=== PATIENT | female | born 1950 | race Caucasian/White ===

== ENCOUNTER 2019-11-29 20:48 | Emergency (ER) | payer MEDICARE, BC ==
[~2019-11-29] VITALS: Ht 157.5 cm; Wt 72.0 kg
[~2019-11-29 20:48] MED LIST: ONDA4TAB6 PO
[2019-11-29 22:04] LABS: BASOPHILS # (AUTO) 0.1 X10'3 (0-0.2); BASOPHILS % (AUTO) 0.3 % (0-1); EOSINOPHILS % (AUTO) 0 % (0-6); HEMATOCRIT 38.6 % (35.0-45.0); HEMOGLOBIN 13.1 g/dl (12.0-16.0); LYMPHOCYTES % (AUTO) 6.1 % (21-51); MEAN CORPUSCULAR HEMOGLOBIN 29.6 PG (27.0-31.0); MEAN CORPUSCULAR VOLUME 87.2 FL (78-98); MEAN PLATELET VOLUME 8.2 FL (7.4-10.4); MONOCYTES # (AUTO) 0.5 X10'3 (0-0.9); MONOCYTES % (AUTO) 2.9 % (2-12); NEUTROPHILS # (AUTO) 15.4 X10'3 (1.8-7.7); NEUTROPHILS % (AUTO) 90.7 % (42-75); PLATELET COUNT 276 X10'3 (140-440); RED BLOOD COUNT 4.42 X10'6 (4.20-5.60); RED CELL DISTRIBUTION WIDTH 13.5 % (11.5-14.5)
[2019-11-29 22:10] LABS: ALANINE AMINOTRANSFERASE 32 U/L (12-78); ALBUMIN 4.3 G/DL (3.4-5.0); ALBUMIN/GLOBULIN RATIO 1.3 (1.1-1.5); ALKALINE PHOSPHATASE 89 IU/L (46-116); ANION GAP 9 (8-16); ASPARTATE AMINO TRANSFERASE 29 U/L (10-37); BILIRUBIN,TOTAL 0.3 MG/DL (0.1-1.0); BLOOD UREA NITROGEN 14 MG/DL (7-18); BUN/CREATININE RATIO 18.9 (6.6-38.0); CALCIUM 9.2 MG/DL (8.5-10.1); CHLORIDE 106 MMOL/L (99-107); CREATININE 0.74 MG/DL (0.40-0.90); GLUCOSE 173 MG/DL (70-104); POTASSIUM 3.8 MMOL/L (3.5-5.1); SODIUM 140 MMOL/L (135-145); TOTAL CARBON DIOXIDE 24.7 MMOL/L (24-32); TOTAL PROTEIN 7.5 G/DL (6.4-8.2); eGFR 77 ML/MIN
[2019-11-29 22:22] LABS: CLARITY,URINE CLEAR (Clear); COLOR,URINE STRAW (Yellow); GLUCOSE, URINE NEGATIVE (Neg); KETONES,URINE NEGATIVE (Neg); LEUKOCYTE ESTERASE ,URINE TRACE (Neg); NITRITES, URINE NEGATIVE (Neg); OCCULT BLOOD,URINE TRACE-INTACT (Neg); PROTEIN,URINE NEGATIVE (Neg); UROBILINOGEN,URINE 0.2 E.U/dL (0.2-1.0)
[2019-11-29 22:24] LABS: UA COLLECTION TYPE CLN CATCH MIDSTREAM
[2019-11-29 22:28] LABS: BACTERIA,URINE NONE SEEN /HPF (Neg); RBC,URINE 0-2 /HPF (0-2); SQUAMOUS EPITHELIAL CELL,UR FEW /LPF (FEW); WBC,URINE 0-4 /HPF (0-4)
[2019-11-29] MEDS ORDERED: CefTRIAXone 2gm/D5W 50ml 50 ML IV ONE (22:35)
[2019-11-29] MEDS: oseltamivir phos 75mg capsule PO ONE ×2 (22:35→22:45)
[2019-11-29] MEDS ORDERED: azithromycin/NS 500mg/250ml 250 ML IV ONE (22:35)
--- NOTE | 2019-11-29 22:37 | NUR ---
INFORMED PA THAT THE PT WAS TO THE CLINIC YESTERDAY AND WAS STARTED ON TAMIFLU. HE STATED TO DISREGARD SWAB AND THAT HE WILL TREAT HER IMPERICALLY.
[2019-11-29] MEDS ORDERED: AZIT250T2 PO (22:39)
[2019-11-29] MEDS ORDERED: GUAI120015 PO (22:39)
[2019-11-29] MEDS ORDERED: PRED20TA PO (22:39)
[2019-11-30 00:08] VITALS: BP 140/63
--- NOTE | 2019-11-30 00:23 | NUR ---
per pharmacist, pt can wait for tamiflu dose until tomorrow since she already took one dose today at 5pm. pt educated to start next dose tomorrow morning. held tamiflu for min
--- NOTE | 2019-11-30 05:49 | NUR ---
RETURNED TAMIFLU TO [employer], UNABLE TO SCAN BAR CODE.
== END 2019-11-30 00:22 | disposition home or self-care (01) ==
LOC: ER 20:48
DX: J20.9 Acute bronchitis, unspecified (principal); J11.1 Influenza due to unidentified influenza virus with other respiratory manifestations; F10.99 Alcohol use, unspecified with unspecified alcohol-induced disorder; Z87.442 Personal history of urinary calculi; Z90.710 Acquired absence of both cervix and uterus; Z88.0 Allergy status to penicillin; Z79.2 Long term (current) use of antibiotics; Z79.899 Other long term (current) drug therapy; Y90.9 Presence of alcohol in blood, level not specified
CPT/HCPCS: 36415; 71046; 80053; 81001; 85025; 87088; 96365; 96367; 99284; J0456; J0696

== ENCOUNTER 2020-11-21 09:09 | Day surgery (SDC) | payer MEDICARE, BC ==
[2020-11-20 12:44] LABS: BASOPHILS % (AUTO) 0.7 % (0-1); EOSINOPHILS # (AUTO) 0.1 X10'3 (0-0.9); EOSINOPHILS % (AUTO) 1.3 % (0-6); HEMOGLOBIN 13.1 g/dl (12.0-16.0); LYMPHOCYTES # (AUTO) 1.7 X10'3 (1.1-4.8); LYMPHOCYTES % (AUTO) 25.8 % (21-51); MEAN CORPUSCULAR HGB CONC 32.8 g/dL (33.0-36.5); MEAN CORPUSCULAR VOLUME 91.5 FL (78-98); MEAN PLATELET VOLUME 7.8 FL (7.4-10.4); MONOCYTES # (AUTO) 0.6 X10'3 (0-0.9); MONOCYTES % (AUTO) 9.2 % (2-12); NEUTROPHILS # (AUTO) 4.1 X10'3 (1.8-7.7); PLATELET COUNT 327 X10'3 (140-440); RED BLOOD COUNT 4.37 X10'6 (4.20-5.60); RED CELL DISTRIBUTION WIDTH 12.3 % (11.5-14.5); WHITE BLOOD COUNT 6.5 X10'3 (4.5-11.0)
[2020-11-20 12:49] LABS: ALBUMIN 4.3 G/DL (3.4-5.0); ANION GAP 12 (8-16); BLOOD UREA NITROGEN 16 MG/DL (7-18); BUN/CREATININE RATIO 25.4 (6.6-38.0); CALCIUM 9.2 MG/DL (8.5-10.1); CHLORIDE 106 MMOL/L (99-107); CREATININE 0.63 MG/DL (0.40-0.90); GLUCOSE 88 MG/DL (70-104); SODIUM 143 MMOL/L (135-145); TOTAL CARBON DIOXIDE 25.2 MMOL/L (24-32); eGFR > 90 ML/MIN
[2020-11-20 12:50] LABS: PARTIAL THROMBOPLASTIN TIME 26 SECONDS (22-32)
[2020-11-21] VITALS (11 sets, daily range): BP systolic 96–158; BP diastolic 56–91
[~2020-11-21] VITALS: Ht 160 cm; Wt 94.9 kg
[~2020-11-21 09:09] MED LIST changes: +GUAI120015 PO
[2020-11-21] MEDS ORDERED: diphenhydrAMINE 25mg capsule PO PRN (09:25)
[2020-11-21] MEDS ORDERED: normal saline 1,000 ML IV SCH (09:25)
[2020-11-21] MEDS ORDERED: LORazepam 0.5 MG tablet PO PRN (09:25)
[2020-11-21] MEDS ORDERED: LIDOcaine/PRILOcaine 5gm cream TP ONE (09:25)
[2020-11-21] MEDS ORDERED: OMEG100T PO (10:03)
[2020-11-21] MEDS ORDERED: ACET-2971 PO (10:03)
[2020-11-21] MEDS ORDERED: RED600CA2 PO (10:03)
[2020-11-21] MEDS ORDERED: ALB0.5UD IH (10:03)
[2020-11-21] MEDS ORDERED: LORA-657 PO (10:03)
[2020-11-21] MEDS ORDERED: OSC500T PO (10:03)
[2020-11-21] MEDS ORDERED: UMEC62.5 IH (10:03)
[2020-11-21] MEDS ORDERED: POTA99TA21 PO (10:03)
[2020-11-21] MEDS ORDERED: ESCI20TA PO (10:03)
[2020-11-21] MEDS ORDERED: NABU-134 PO (10:03)
[2020-11-21] MEDS ORDERED: heparin 1,000unit/ml 10ml vial 10 ML ONE (11:32)
[2020-11-21] MEDS ORDERED: verapamil 2.5 mg/ml inj IV ONE (11:32)
[2020-11-21] MEDS ORDERED: LIDOcaine 1% (10mg/ml)w/preservative injection 20ml MDV ONE (11:32)
[2020-11-21] MEDS ORDERED: midazolam 2 mg/2 ml injection ONE (11:32)
[2020-11-21] MEDS ORDERED: nitroGLYCERIN-Tridil 50MG/D5W 250 ML IV ONE (11:32)
[2020-11-21] MEDS ORDERED: iohexol 350MG/ML 100ml bottle IV ONE (11:32)
[2020-11-21] MEDS ORDERED: fentaNYL/PF 50MCG/1 ML 2ML syringe ONE (11:32)
[2020-11-21] MEDS ORDERED: iohexol 350 MG/ML 50ML vial IV ONE (11:32)
[2020-11-21] MEDS ORDERED: normal saline 1000ml 1,000 ML IV SCH (13:10)
== END 2020-11-21 16:15 | disposition home or self-care (01) ==
LOC: SSTAY O 09:09
PROVIDERS: ATTEND Internal Medicine Cardiovascular Disease
DX: R94.39 Abnormal result of other cardiovascular function study (principal); I25.10 Atherosclerotic heart disease of native coronary artery without angina pectoris; I08.3 Combined rheumatic disorders of mitral, aortic and tricuspid valves; I10 Essential (primary) hypertension; E66.3 Overweight; Z68.30 Body mass index [BMI] 30.0-30.9, adult; J45.909 Unspecified asthma, uncomplicated; F32.9 Major depressive disorder, single episode, unspecified; E78.5 Hyperlipidemia, unspecified; Z96.652 Presence of left artificial knee joint; Z98.890 Other specified postprocedural states; Z87.442 Personal history of urinary calculi; Z90.710 Acquired absence of both cervix and uterus; Z87.891 Personal history of nicotine dependence; Z88.1 Allergy status to other antibiotic agents; Z88.0 Allergy status to penicillin; Z79.01 Long term (current) use of anticoagulants; Z79.899 Other long term (current) drug therapy; Z88.2 Allergy status to sulfonamides; Z82.49 Family history of ischemic heart disease and other diseases of the circulatory system
CPT/HCPCS: 36415; 76937; 80048; 85025; 85610; 85730; 93005; 93458; 99152; C1769; C1894; J1644; J2001; J2250; J3010; J7030; Q0163; Q9967; A4620; A5120; A6258; J3490

== ENCOUNTER 2023-03-20 23:53 | Emergency (ER) | payer MEDICARE, BC ==
[~2023-03-20] VITALS: Ht 160 cm; Wt 81.8 kg
[~2023-03-20 23:53] MED LIST changes: +ACET-2971 PO; +ALB0.5UD IH; +ESCI20TA PO; -GUAI120015 PO; +LORA-657 PO; +NABU-139 PO; +OMEG100T PO; -ONDA4TAB6 PO; +OSC500T PO; +POTA99TA26 PO; +RED600CA2 PO; +UMEC62.5 IH
[2023-03-21] MEDS ORDERED: HYDROcodone/acetaminophen 5mg/325mg tablet PO ONE (01:40)
[2023-03-21] MEDS ORDERED: HYDR-3965 PO (03:19)
[2023-03-21 03:43] VITALS: BP 142/86
== END 2023-03-21 03:45 | disposition home or self-care (01) ==
LOC: ER 23:54
DX: S82.302A Unspecified fracture of lower end of left tibia, initial encounter for closed fracture (principal); S82.832A Other fracture of upper and lower end of left fibula, initial encounter for closed fracture; J45.909 Unspecified asthma, uncomplicated; M19.90 Unspecified osteoarthritis, unspecified site; Z88.0 Allergy status to penicillin; Z88.2 Allergy status to sulfonamides; Z90.710 Acquired absence of both cervix and uterus; W01.0XXA Fall on same level from slipping, tripping and stumbling without subsequent striking against object, initial encounter; Y93.89 Activity, other specified; Y92.89 Other specified places as the place of occurrence of the external cause; Y99.8 Other external cause status
CPT/HCPCS: 29515; 73590; 73610; 99284

== ENCOUNTER 2024-01-20 08:50 | Day surgery (SDC) | payer MEDICARE, BC ==
[2024-01-19 10:43] LABS: BASOPHILS % (AUTO) 0.7 % (0-1); EOSINOPHILS # (AUTO) 0.1 X10'3 (0-0.9); EOSINOPHILS % (AUTO) 2.1 % (0-6); HEMATOCRIT 40.8 % (35.0-45.0); HEMOGLOBIN 13.5 g/dl (12.0-16.0); LYMPHOCYTES # (AUTO) 1.8 X10'3 (1.1-4.8); LYMPHOCYTES % (AUTO) 32.2 % (21-51); MEAN CORPUSCULAR HEMOGLOBIN 30.4 PG (27.0-31.0); MEAN CORPUSCULAR HGB CONC 33.2 g/dL (33.0-36.5); MEAN CORPUSCULAR VOLUME 91.7 FL (78-98); MEAN PLATELET VOLUME 7.4 FL (7.4-10.4); MONOCYTES # (AUTO) 0.5 X10'3 (0-0.9); MONOCYTES % (AUTO) 9.7 % (2-12); NEUTROPHILS % (AUTO) 55.3 % (42-75); PLATELET COUNT 288 X10'3 (140-440); RED BLOOD COUNT 4.45 X10'6 (4.20-5.60); RED CELL DISTRIBUTION WIDTH 13.2 % (11.5-14.5); WHITE BLOOD COUNT 5.5 X10'3 (4.5-11.0)
[2024-01-19 10:52] LABS: ALBUMIN 4.1 G/DL (3.4-5.0); ANION GAP 12 (8-16); BLOOD UREA NITROGEN 17 MG/DL (7-18); CALCIUM 9.1 MG/DL (8.5-10.1); CHLORIDE 108 MMOL/L (99-107); CREATININE 0.81 MG/DL (0.40-0.90); GLUCOSE 84 MG/DL (70-104); POTASSIUM 4.4 MMOL/L (3.5-5.1); SODIUM 143 MMOL/L (135-145); TOTAL CARBON DIOXIDE 22.6 MMOL/L (24-32); eGFR 69 ML/MIN
[2024-01-19 10:57] LABS: APTT 23 SECONDS (22-32); PROTHROMBIN TIME 10.3 SECONDS (9.0-12.0)
[2024-01-20] VITALS (11 sets, daily range): BP systolic 99–155; BP diastolic 61–86; PULSE 60–69; RESP 16; TEMP 98; O2SAT 93–97
[~2024-01-20] VITALS: Ht 160 cm; Wt 83.8 kg
[2024-01-20] MEDS ORDERED: CARV6.2553 PO (09:23)
[2024-01-20] MEDS ORDERED: FLEC50TA PO (09:23)
[2024-01-20] MEDS ORDERED: fentaNYL/PF 50MCG/1 ML 2ML syringe ONE (10:33)
[2024-01-20] MEDS ORDERED: iohexol 350 MG/ML 50ML vial IV ONE (10:33)
[2024-01-20] MEDS ORDERED: verapamil 2.5 mg/ml inj IV ONE (10:33)
[2024-01-20] MEDS ORDERED: midazolam 1 mg/ML 2ml injection ONE (10:33)
[2024-01-20] MEDS ORDERED: LIDOcaine 1% 30ml preserv. free vial ONE (10:33)
[2024-01-20] MEDS ORDERED: iohexol 350MG/ML 100ml bottle IV ONE (10:33)
[2024-01-20] MEDS ORDERED: heparin 1,000unit/ml 10ml vial 10 ML ONE (10:33)
[2024-01-20] MEDS ORDERED: nitroGLYCERIN 500mcg/5mL D5W 5 ML IV ONE (10:34)
[2024-01-20] MEDS ORDERED: normal saline 1,000 ML IV SCH (10:45)
[2024-01-20] MEDS: LORazepam 0.5 MG tablet PO PRN (11:00)
[2024-01-20] MEDS: diphenhydrAMINE 25mg capsule PO PRN (11:00)
[2024-01-20] MEDS: normal saline 1,000 ML IV SCH (11:01)
[2024-01-20 12:08] LABS: ISTAT HGB ART 12.6 g/dl (12.0-16.0); ISTAT Hct ART 37 %PCV (35-45); ISTAT O2 SATURATION ARTERIAL 93 % (95-98); ISTAT SOURCE ART
[2024-01-20 12:23] LABS: ISTAT HGB MIX 12.6 g/dl (12.0-16.0); ISTAT Hct MIX 37 %PCV (35-45); ISTAT O2 SATURATION MIX VENOUS 67 % (60-80); ISTAT SOURCE VEN
[2024-01-20] MEDS ORDERED: normal saline 1000ml 1,000 ML IV SCH (13:00)
== END 2024-01-20 17:15 | disposition home or self-care (01) ==
LOC: SSTAY O 08:50
PROVIDERS: ATTEND Internal Medicine Cardiovascular Disease
DX: I25.119 Atherosclerotic heart disease of native coronary artery with unspecified angina pectoris (principal); I08.3 Combined rheumatic disorders of mitral, aortic and tricuspid valves; I10 Essential (primary) hypertension; E66.3 Overweight; Z68.32 Body mass index [BMI] 32.0-32.9, adult; J45.909 Unspecified asthma, uncomplicated; F32.A Depression, unspecified; I47.10 Supraventricular tachycardia, unspecified; E78.5 Hyperlipidemia, unspecified; Z90.710 Acquired absence of both cervix and uterus; Z98.890 Other specified postprocedural states; Z96.652 Presence of left artificial knee joint; Z87.891 Personal history of nicotine dependence; Z88.1 Allergy status to other antibiotic agents; Z88.0 Allergy status to penicillin; Z88.2 Allergy status to sulfonamides; Z79.899 Other long term (current) drug therapy; Z79.01 Long term (current) use of anticoagulants; Z82.49 Family history of ischemic heart disease and other diseases of the circulatory system
CPT/HCPCS: 36410; 36415; 76937; 80048; 82803; 85014; 85025; 85610; 85730; 93005; 93460; 99152; 99153; J1644; J2250; J3010; J3490; J7030; Q0163; Q9967; A6258; A6402; C1725; C1751; C1894